=== PATIENT | female | born 1995 | race Two or more races ===

== ENCOUNTER 2024-05-17 15:08 | Outpatient (AMBR) | payer MEDICAID, SELFPAY ==
--- NOTE | 2024-05-17 16:30 | LACNOTE_ITS ---
Assessment LAC Breast Assessment Breast Assessment Bilateral: Breast Assessment Comment: large full breasts, mom has good milk supply Alternative Milk Expression Alternative Milk Expression Alternative Method Comment: issued mom a hand pump as she has a small electric but doesn't feel it is working LAC Assessment Breast Feeding Assessment Date of : 04/16/24 Current Age of baby: 1 (month) Weight: 3129.787 kg Current weight of baby: 3238.65 kg Color of Stools: yellow, explosive and somewhat mucous Breast Feeding Ability: Well [place] Complications: Difficult Latch [place] Activity Level: Awake / Alert Muscle Tone: With In Normal Limits Suck Quality: Areolar Compression and Tongue Retracts Effective Suck: Yes Swallow: Audible [place] Jaw: Receding Lip Seal: Excess Suction and Chomping Feeding Posistion: Cradle Additional Latch or Posistion Assistance Needed: Minimal Breast Feeding Comment: mom has good let down and baby struggling to keep up with flow, encouraged mom to pump prior to feeds to allow for slower flow of milk in order for baby to adjust LAC Latch Score LATCH Score Latch: Repeat Attempt to Hold Nipple Audible Swallow: Spontaneous, Intermittent, Frequent Nipple Type: Everted After Stimulation Comfort: Red, Small Blisters, Bruises Hold: Minimal Assistance Needed Total Score: 7 OP DC Assessment Discharge Visit Complete?: Yes
--- NOTE | 2024-05-17 16:54 | LAC.VISIT ---
Assessment LAC OP History History Hx of Breast Surgery: No Hx of Breast Feeding Problems: No LAC Breast Assessment Breast Assessment Left: Breast Assessment Comment: large full breast, mom has good milk supply Alternative Milk Expression Alternative Milk Expression Alternative Method Used: Yes Method Used: Pumping Alternative Method Comment: issued mom a hand pump as she has a small electric but doesn't feel it is working. Alternative Method Used Reason: Stimulation and Poor Feeding LAC Assessment Breast Feeding Assessment Date of : 04/16/24 Current Age of baby: 1 (month) Weight: 3129.787 g Current weight of baby: 3238.65 g Color of Stools: yellow, explosive and somewhat mucous Breast Feeding Ability: Well Complications: Difficult Latch Complications Comment: hard time staying latched and effectively transfering milk. baby struggles to suck swallow and detaches after only 4-5 minutes of a feed. sleeps for 10 -20 minutes and then wakes up to feed again for 5-6 minutes. repeated throughout the day. mom exhaused from feedling all day and baby struggling to breath through feeding. Activity Level: Rooting and Sleepy Muscle Tone: With In Normal Limits [place] Suck Quality: Areolar Compression and Tongue Retracts Effective [place] Suck: Yes [place] Swallow: Audible [place] Jaw: Receding [place] Lip Seal: Clicking, Excess Suction and Chomping Feeding Posistion: Cradle Additional Latch or Posistion Assistance Needed: Minimal Breast Feeding Comment: mom has good let down and baby struggling to keep up with flow, encouraged mom to pump prior to feeds to allow for slower flow of milk in order for baby to adjust LAC Intervention Discharge Follow Up Appointment Date and Time: as needed LAC Latch Score LATCH Score Latch: Repeat Attempt to Hold Nipple Audible Swallow: Spontaneous, Intermittent, Frequent Nipple Type: Everted After Stimulation Comfort: Red, Small Blisters, Bruises Hold: Minimal Assistance Needed Total Score: 7 OP DC Assessment Discharge Follow Up Appointment Date and Time: as needed
== END 2024-05-20 23:59 | disposition home or self-care (01) ==
LOC: HODLAC 15:08
DX: Z39.1 Encounter for care and examination of lactating mother (principal)

== ENCOUNTER 2024-08-30 15:33 | Emergency (ER) | payer MEDICAID, SELFPAY ==
[2024-08-30 15:33] VITALS: BMI 23.8
[2024-08-30 15:42] VITALS: BP 115/80; PULSE 102; RESP 20; TEMP 36.8; O2SAT 98
--- NOTE | 2024-08-30 16:02 | PD.EDURI ---
Upper Respiratory Inf. RME/HPI General Chief Complaint: Flu Like Symptoms Stated Complaint: COUGH/PARRISH/RUNNY NOSE/SORE THROAT x 2 DAYS Time Seen by Provider: 08/30/24 15:38 Arrival date/time: 08/30/24 15:33 29-year-old female with no significant medical problems presents emergency department today with complaints of cough, congestion, runny nose ongoing x 2 days patient is here with her infant who has tested positive for RSV there are no other associated symptoms or aggravating factors no other modifying factors, patient denies taking medication before coming to ER today Limitations: no limitations Related Data Home Medications ?Medication ?Instructions ?Recorded ?Confirmed vits no.130-ferrous fum 1 tab PO QDAY 04/16/24 04/16/24 27 mg iron-folic acid 800 mcg tablet ( Vitamin) Previous Rx's ?Medication ?Instructions ?Recorded docusate sodium 100 mg capsule 100 mg PO BID #60 caps 04/16/24 (Colace) ibuprofen 800 mg tablet 800 mg PO Q6H PRN pain #120 tabs 04/16/24 lanolin 50 % topical ointment 1 applic topical TID PRN skin 04/16/24 irritation #15 tubes benzonatate 100 mg capsule 100 mg PO TID #14 caps 08/30/24 prednisone 20 mg tablet 20 mg PO BID 3 days #6 tabs 08/30/24 Allergies Allergy/AdvReac Type Severity Reaction Status Date / Time pineapple Allergy Severe Rash Verified 08/30/24 15:35 Review of Systems Review of Systems Systems Reviewed: All systems reviewed, normal except as documented Constitutional Constitutional: Reports system reviewed and no additional complaints, except as documented, Reports body ache(s), Reports chills, Reports fever(s) and Reports headache(s) Eyes Eyes: Reports system reviewed and no additional complaints, except as documented and Denies blurry vision ENT Ears, Nose, Mouth, and Throat: Reports system reviewed and no additional complaints, except as documented, Reports headache(s), Reports nasal congestion and Reports nasal discharge Cardiovascular Cardiovascular: Reports system reviewed and no additional complaints, except as documented, Denies chest pain and Denies dyspnea Respiratory Respiratory: Reports system reviewed and no additional complaints, except as documented, Denies chest congestion, Denies cough and Denies dyspnea Gastrointestinal Gastrointestinal: Reports system reviewed and no additional complaints, except as documented and Denies abdominal pain Integumentary/Breasts Skin/Breast: Reports system reviewed and no additional complaints, except as documented and Denies rash Neurologic Neurologic: Reports system reviewed and no additional complaints, except as documented, Reports as per HPI and Reports headache(s) Past Medical History Past Medical History NEUROLOGIC: Negative Neurological Disorders CARDIAC: Negative Cardiac Disorders or Congestive Heart Failure RESPIRATORY: Negative Chronic Obstructive Pulmonary Disease (COPD) GASTROINTESTINAL: Positive Gall Bladder Disease; Negative Gastrointestinal Disorders GENITOURINARY: Negative Genitourinary Disorders or Renal Disease REPRODUCTIVE: Positive Previous Pregnancies; Negative Endometriosis, Pelvic Inflammatory Disease or Uterine Prolapse MUSCULOSKELETAL: Negative Musculoskeletal Disorders ENDOCRINE: Negative Endocrine Disorders, Diabetes Mellitus Type 1 or Diabetes Mellitus Type 2 HEMATOLOGIC: Positive Anemia; Negative Clotting Problems OTHER HISTORY: Negative Autoimmune Disease, Anesthesia Reactions, MRSA, Clostridium Difficile or Cancer Family History FAMILY HISTORY: Positive Family Cancer; Negative Family Psychiatric Problems, Family Respiratory Disorders, Family Cardiac Disorders, Family Gastrointestinal Problems, Family Surgery or Family Anesthesia Reaction Surgical History SURGICAL: Negative Section Social History SMOKING STATUS: Never smoker SECOND HAND EXPOSURE: No ED Exam General Limitations: Present no limitations General appearance: Present alert and in no apparent distress Head Head exam: Present atraumatic, normocephalic and normal inspection Eye Eye exam: Present normal appearance, PERRL and EOMI; Absent conjunctival injection ENT ENT exam: Present normal exam, normal oropharynx and mucous membranes moist Neck Neck exam: Present normal inspection, full ROM and trachea midline Chest Chest inspection: Present normal inspection and symmetric chest wall rise; Absent tenderness Respiratory Respiratory exam: Present normal lung sounds bilaterally; Absent respiratory distress Cardiovascular Cardiovascular exam: Present regular rate, normal rhythm and normal heart sounds Abdominal Exam Abdominal exam: Present soft and normal bowel sounds; Absent distention, tenderness, guarding, rebound or rigidity Extremities Exam Extremities exam: Present normal inspection and full ROM Back Exam Back exam: Present normal inspection and full ROM Neurological Exam Neurological exam: Present alert, oriented X3 and CN II-XII intact Psychiatric Psychiatric exam: Present normal affect and normal mood Skin Skin exam: Present warm, dry, intact and normal color Course Quality Measures none Vital Signs Vital signs: Vital Signs Temperature 98.3 F 08/30/24 15:42 Pulse Rate 102 H 08/30/24 15:42 Respiratory Rate 20 08/30/24 15:42 Blood Pressure 115/80 08/30/24 15:42 Pulse Oximetry (%) 98 08/30/24 15:42 Oxygen Delivery Method Room Air 08/30/24 15:42 O2 saturation 98% room air within normal limits Upper Respiratory Infection MDM Narrative MDM Narrative:: 29-year-old female with no significant medical problems presents emergency department today with complaints of cough, congestion, runny nose ongoing x 2 days patient is here with her who has tested positive for RSV there are no other associated symptoms or aggravating factors no other modifying factors, patient denies taking medication before coming to ER today On exam patient well-appearing patient's not appear ill or toxic patient will be treated symptomatically Patient hemodynamically stable Patient discharged home in no distress to follow-up with primary care doctor in the next 24 to 48 hours and for any worsening symptoms to return to the ER immediately Patient data External records reviewed:: [facility] previous records Clinical information provided by:: patient Social determinants that could affect healthcare access:: none Patient has the following chronic illnesses:: None How is presenting disease/condition affected by chronic disease/condition?: no chronic disease Evaluation data The following diagnostics were reviewed and interpreted by me:: lab results Lab and/or radiology exams considered but not ordered:: Labs obtained Interpretation Summary: Reviewed by me Medications / Prescriptions Medications or Prescriptions considered but not ordered:: Rx given Medication administrations:: Rx given Consultations Consultation(s) initiated? (list below): No Diagnosis Upper Respiratory Differential Diagnosis: upper respiratory infection, otitis media, sinusitis, viral infection, bronchitis and influenza Most likely diagnosis given after review of the tests above:: RSV Admission Indicated Admission indicated?: not indicated Admission Request Was there a request for admission?: No Disposition Plan Disposition Plan: Discharge Discharge Attestation Discharge Attestation: The patient and all family members were given an opportunity to ask questions and understood the discharge instructions. Discharge instructions specifically effects, indications for sooner follow up or return to the emergency department, and the expected course of current diagnosis. Patient condition: Stable Discharge Plan Plan Patient Disposition: HOME (Self Care) Disposition Comment: Stable Prescriptions/Referrals Prescriptions/Med Rec: New prednisone 20 mg tablet 20 mg PO BID 3 Days Qty: 6 0RF benzonatate 100 mg capsule 100 mg PO TID Qty: 14 0RF No Action Vitamin 27 mg iron- 800 mcg tablet 1 tab PO QDAY Patient Comments: TAKE ONE TABLET BY MOUTH EVERY DAY VITAMIN ibuprofen 800 mg tablet 800 mg PO Q6H MDD 4 PRN (Reason: pain) Qty: 120 0RF docusate sodium [Colace] 100 mg capsule 100 mg PO BID Qty: 60 0RF lanolin 50 % ointment 1 applic topical TID PRN (Reason: skin irritation) Qty: 15 0RF Problem List Clinical Impression: URI (upper respiratory infection), RSV exposure Patient/Caregiver Discharge Instructions Education Materials: ED URI, Viral, No Abx (Adult) Additional Instructions: Please follow up with your primary care doctor in the next 24-48hrs for any worsening symptoms return here immediately Print Language: Citizen Of [place] Stand Alone Forms: Megan Award Info., Patient Portal Info Letter PA/FAMILY SERVICES WORKER Supervising Physician PA/FAMILY SERVICES WORKER Supervising Physician: Dr. Coleman
== END 2024-08-30 16:13 | disposition home or self-care (01) ==
LOC: SERX 16:30
PROVIDERS: Emergency Provider Emergency Medicine
DX: J06.9 Acute upper respiratory infection, unspecified (principal)
CPT/HCPCS: 99281

== ENCOUNTER 2024-10-22 20:10 | Emergency (ER) | payer BC, MEDICAID, SELFPAY ==
[2024-10-22 20:13] VITALS: BMI 23.8
[2024-10-22 21:30] VITALS: BP 121/75; PULSE 71; RESP 18; TEMP 36.7; O2SAT 98
--- NOTE | 2024-10-22 21:42 | XR_ITS ---
Examination: Transvaginal ultrasound of the pelvis, complete Technique: Transvaginal sonographic images pelvis performed using bourne scale imaging Exam date and time: October 22, 2024, 11:44 PM INDICATIONS: Severe pelvic pain beginning 2 months ago FINDINGS: Uterus 5.7 cm with increased vascularity, endometrial stripe 0.2 cm Right ovary 3.4 cm arterial flow small follicles, dilated veins Left ovary 2.4 cm arterial flow small follicles IMPRESSION: Increased vascularity to the uterus, no uterine mass or intrauterine gestation
--- NOTE | 2024-10-22 21:42 | XR_ITS ---
Examination: CT abdomen with intravenous contrast CT pelvis with intravenous contrast 2-D coronal reconstructions 2-D sagittal reconstructions Date and time of exam:October 23, 2024 0141 hours INDICATIONS: Pelvic abdominal pain beginning 2 months ago. CTDI: vol (mGy) 4.86 DLP: (mGycm) 253 Technique: Multiple axial sections of the abdomen and pelvis have been obtained. 64 slice high-resolution scanner used. 3 mm axial sections have been obtained, post intravenous injection 60 cc [id number] 2-D sagittal, coronal reconstructions obtained. Low dose protocols were performed. One or more of the following dose reduction techniques were used; automated exposure control, adjustment of the mA and/or KV according to patient size, use of iterative reconstruction technique. Findings: No focal liver or splenic lesion Absent gallbladder No pancreatic mass No renal or ureteral calculi Aorta normal size No bowel obstruction Normal appendix Prominent vessels surrounding the uterus Mild urinary bladder wall thickening IMPRESSION: Prominent vessels surrounding the uterus, clinical correlation advised Cystitis pattern
[2024-10-22 22:10] LABS: Basophils # (Auto) 0.1 Thou/mm3 (0.0-0.2); Basophils % (Auto) 1 % (0-2.5); Eosinophils # (Auto) 0.2 Thou/mm3 (0.0-0.5); Eosinophils % (Auto) 3 % (0-10); Hematocrit 38.8 % (36.0-46.0); Hemoglobin 12.7 g/dL (12.0-16.0); Immature Granulocytes % (Auto) 0 % (0-0); Lymphocytes # (Auto) 2.7 Thou/mm3 (1.0-4.8); Lymphocytes % (Auto) 39 % (10-50); Mean Corpuscular HGB Conc 32.7 g/dl (31.0-37.0); Mean Corpuscular Volume 86 fL (80-100); Monocytes # (Auto) 0.5 Thou/mm3 (0.0-0.8); Monocytes % (Auto) 7 % (0-12); Neutrophils # (Auto) 3.5 Thou/mm3 (1.8-7.7); Neutrophils % (Auto) 51 % (37-80); Nucleated Red Blood Cell % 0 /100 WBC (0); Platelet Count 205 Thou/mm3 (140-440); RDW Standard Deviation 40.1 fL (36.4-46.3); Red Blood Count 4.53 Miln/mm3 (4.00-5.20); White Blood Count 6.8 Thou/mm3 (3.6-11.0)
[2024-10-22 22:44] LABS: Alanine Aminotransferase < 7 U/L (10-49); Albumin, Serum 4.7 gm/dL (3.5-5.0); Anion Gap 8 (7-16); Aspartate Amino Transferase 15 U/L (0-34); BUN/Creatinine Ratio 32 Ratio (12-20); Bilirubin,Total 0.4 mg/dL (0.3-1.2); Blood Urea Nitrogen 19 mg/dL (9-23); Calcium 9.4 mg/dL (8.3-10.6); Carbon Dioxide 27.1 mMol/L (20.0-31.0); Chloride 103 mMol/L (98-107); Creatinine (Component) 0.6 mg/dL (0.6-1.3); Estimated Creatinine Clearance 109.4 mL/min (>60); Glucose 96 mg/dL (74-106); Osmolality,Calculated 277 (275-295); Sodium 138 mMol/L (136-145); Total Protein 7.8 gm/dL (5.7-8.2); eGFR > 60 See Note
[2024-10-22 22:45] LABS: Albumin/Globulin Ratio 1.5 (1.2-2.2); Alkaline Phosphatase 189 U/L (46-116); Calcium (Corrected) 9.4 mg/dL (8.5-10.1); Globulin 3.1 gm/dL (2.3-3.5); Lipase 38 U/L (12-53)
[2024-10-22 23:02] LABS: Collection Type, Urine Clean Catch
[2024-10-22 23:32] LABS: Bilirubin,Urine Negative (Negative); Blood,Urine Trace (Negative); Clarity,Urine Clear (Clear/Hazy); Color,Urine Lt-Yellow (Lt Yel-Yel); Glucose, Urine Negative (Negative); Ketones,Urine Negative (Negative); Leukocyte Esterase,Urine Positive (Negative); Nitrite,Urine Negative (Negative); PH,Urine 6.5 (5.0-7.0); Protein,Urine Trace (Neg - Trace); RBC,Urine 10 /hpf (0-3); Specific Gravity,Urine 1.028 (1.001-1.035); Squamous Epithelial Cell,Urine 8 /hpf (0-5); Urobilinogen,Urine Negative mg/dL (0.0-1.0); WBC,Urine 80 /hpf (0-5)
[2024-10-22 23:33] LABS: HCG Qualitative,Urine Negative
[2024-10-23] MEDS: KETOROLAC INJ 30 MG/ML VIAL IVP (00:12)
--- NOTE | 2024-10-23 01:34 | PRELIM_ITS ---
Pelvic ultrasound (transvaginal) with Doppler. October 22, 2024 2344 hours Clinical history: Pain No prior study is available for comparison. Findings: The uterus is retroflexed and appear smaller in size measuring 5.7 x 2.8 x 3.4 cm. The myometrium appear hypervascular with multiple dilated parametrial veins. The endometrium is unremarkable and measures 0.2 cm. The right ovary measures 3.4 x 1.6 x 2.2 cm.The left ovary measures 2.4 x 1.9 x 1.9 cm. Both ovaries demonstrate color flow and spectral waveforms on Doppler evaluation. There is no adnexal mass. There is no free fluid on the submitted images. Impression: No evidence of ovarian torsion. 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 Adenomyosis is also in the differential. Recommend clinical correlation and followup with elective MRI. Report Electronically Signed By: Boubacar Link 10/23/2024 1:33:51 AM [EST]
--- NOTE | 2024-10-23 02:50 | PRELIM_ITS ---
CT scan of the abdomen and pelvis with intravenous contrast (axial sections with sagittal and coronal reformats) October 23, 2024 0141 hours Clinical History: Several months of pelvic pain No prior study is available for comparison. Findings: The lung bases are clear. The gallbladder is surgically absent. The liver, pancreas, spleen, kidneys and adrenals are unremarkable. No evidence of small bowel dilatation. The appendix is within normal limits. Moderate amount of fecal material is present in the colon. The urinary bladder is not well distended with apparent wall thickening .There are multiple small follicles in bilateral ovaries. There are prominent bilateral pelvic veins, which may represent pelvic congestion. There is no free fluid or free air.There is no adenopathy. The osseous structures are unremarkable. Impression: No evidence of bowel obstruction, free air or abscess. Prominent bilateral pelvic veins, which may represent pelvic congestion. Recommend further evaluation. Incompletely distended urinary bladder with apparent wall thickening, mild cystitis cannot be excluded. Recommend clinical and laboratory correlation. Report Electronically Signed By: Boubacar Link 10/23/2024 2:49:36 AM [EST]
[2024-10-23] MEDS: MORPHINE SULF INJ 10 MG/ML VIAL 5 MG IVP (04:08)
[2024-10-23 04:09] VITALS: BP 124/64; PULSE 89; RESP 19; TEMP 36.7; O2SAT 99
--- NOTE | 2024-10-23 04:27 | PD.EDFMALE ---
ED Female Urogenital RME/HPI General Chief complaint: Abdominal Pain Stated complaint: Abdominal pain 8/10 with off/on nausea LR Time Seen by Provider: 10/22/24 21:41 Arrival date/time: 10/22/24 20:10 29F with no significant PMH presents to ED with several months of intermittent but intense pelvic pain and N/V. Patient has had various unremarkable US, but no CT. Limitations: no limitations Related Data Home Medications ?Medication ?Instructions ?Recorded ?Confirmed vits no.130-ferrous fum 1 tab PO QDAY 04/16/24 04/16/24 27 mg iron-folic acid 800 mcg tablet ( Vitamin) Previous Rx's ?Medication ?Instructions ?Recorded docusate sodium 100 mg capsule 100 mg PO BID #60 caps 04/16/24 (Colace) ibuprofen 800 mg tablet 800 mg PO Q6H PRN pain #120 tabs 04/16/24 lanolin 50 % topical ointment 1 applic topical TID PRN skin 04/16/24 irritation #15 tubes benzonatate 100 mg capsule 100 mg PO TID #14 caps 08/30/24 Allergies Allergy/AdvReac Type Severity Reaction Status Date / Time pineapple Allergy Severe Rash Verified 08/30/24 15:35 Review of Systems Review of Systems Systems Reviewed: All systems reviewed, normal except as documented Constitutional Constitutional: Reports system reviewed and no additional complaints, except as documented, Denies fever(s) and Denies headache(s) ENT Ears, Nose, Mouth, and Throat: Denies disequilibrium and Denies headache(s) Cardiovascular Cardiovascular: Reports system reviewed and no additional complaints, except as documented, Denies chest pain and Denies dyspnea Respiratory Respiratory: Reports system reviewed and no additional complaints, except as documented, Denies cough and Denies dyspnea Gastrointestinal Gastrointestinal: Reports system reviewed and no additional complaints, except as documented, Denies abdominal pain, Denies nausea and Denies vomiting Genitourinary Genitourinary: Reports as per HPI and Reports pelvic pain Neurologic Neurologic: Reports system reviewed and no additional complaints, except as documented, Denies confusion, Denies disequilibrium and Denies headache(s) Psychiatric Psychiatric: Denies confusion Past Medical History Past Medical History NEUROLOGIC: Negative Neurological Disorders CARDIAC: Negative Cardiac Disorders or Congestive Heart Failure RESPIRATORY: Negative Chronic Obstructive Pulmonary Disease (COPD) or Asthma GASTROINTESTINAL: Positive Gall Bladder Disease; Negative Gastrointestinal Disorders GENITOURINARY: Negative Genitourinary Disorders or Renal Disease REPRODUCTIVE: Positive Previous Pregnancies; Negative Endometriosis, Pelvic Inflammatory Disease or Uterine Prolapse MUSCULOSKELETAL: Negative Musculoskeletal Disorders ENDOCRINE: Negative Endocrine Disorders, Diabetes Mellitus Type 1 or Diabetes Mellitus Type 2 HEMATOLOGIC: Positive Anemia; Negative Sickle Cell Disease or Clotting Problems OTHER HISTORY: Negative Autoimmune Disease, Anesthesia Reactions, MRSA, Clostridium Difficile or Cancer Family History FAMILY HISTORY: Positive Family Cancer; Negative Family Psychiatric Problems, Family Respiratory Disorders, Family Cardiac Disorders, Family Gastrointestinal Problems, Family Surgery or Family Anesthesia Reaction Surgical History SURGICAL: Negative Section Social History SMOKING STATUS: Never smoker SECOND HAND EXPOSURE: No ED Exam General Limitations: Present no limitations General appearance: Present alert and in no apparent distress Head Head exam: Present atraumatic Eye Eye exam: Present normal appearance, PERRL and EOMI ENT ENT exam: Present normal exam, normal oropharynx and mucous membranes moist Neck Neck exam: Present normal inspection, full ROM and trachea midline Chest Chest inspection: Present normal inspection and symmetric chest wall rise Respiratory Respiratory exam: Present normal lung sounds bilaterally Cardiovascular Cardiovascular exam: Present regular rate, normal rhythm and normal heart sounds Abdominal Exam Abdominal exam: Present soft and normal bowel sounds Extremities Exam Extremities exam: Present normal inspection and full ROM Back Exam Back exam: Present normal inspection and full ROM Neurological Exam Neurological exam: Present alert, oriented X3 and CN II-XII intact Psychiatric Psychiatric exam: Present normal affect and normal mood Skin Skin exam: Present warm, dry, intact and normal color Course Quality Measures none Orders Category Date Time Status CT Screening NOW Care 10/22/24 21:42 Completed Insert IV NOW Care 10/22/24 21:[address] abdomen pelvis w con Stat Exams 10/22/24 21:42 Taken US transvaginal Stat Exams 10/22/24 21:42 Taken CBC Stat Lab 10/22/24 21:56 Completed CMP [Comprehensive Metabolic Panel] Stat Lab 10/22/24 21:56 Completed HCG Qualitative,Urine Stat Lab 10/22/24 22:50 Completed Lipase Stat Lab 10/22/24 21:56 Completed UA [Urinalysis] Stat Lab 10/22/24 22:50 Completed Ketorolac Inj [Toradol Inj] Med 10/22/24 21:42 Discontinued 30 mg IVP X1 ONE Ketorolac Inj [Toradol Inj] Med 10/23/24 03:10 Discontinued 30 mg IVP X1 ONE Morphine Inj Med 10/23/24 03:14 Discontinued 5 mg IVP X1 ONE Vital Signs Vital signs: Vital Signs Temperature 98.1 F 10/22/24 21:30 Pulse Rate 71 10/22/24 21:30 Respiratory Rate 18 10/22/24 21:30 Blood Pressure 121/75 10/22/24 21:30 Pulse Oximetry (%) 98 10/22/24 21:30 Oxygen Delivery Method Room Air 10/22/24 21:30 O2 at 98% on RA and WNLs Urogenital - Female MDM Narrative MDM Narrative:: 29F with no significant PMH presents to ED with several months of intermittent but intense pelvic pain and N/V. Patient has had various unremarkable US, but no CT. Physical exam eveals no ab tenderness. Patient is afebrile, alert, but appears to be in pain. CT and US reveals possible pelvic congestion syndrome. Epic Analyst given. No leukocytosis. CMP unremarkable. HCG neg. UA contaminated but possible UTI, but will not treat as patient denies dysuria. Patient data External records reviewed:: [facility] previous records Clinical information provided by:: patient Social determinants that could affect healthcare access:: none Patient has the following chronic illnesses:: none How is presenting disease/condition affected by chronic disease/condition?: no chronic disease Evaluation data The following diagnostics were reviewed and interpreted by me:: lab results and radiology exam(s) Lab and/or radiology exams considered but not ordered:: ordered Interpretation Summary: above Medications / Prescriptions Medications or Prescriptions considered but not ordered:: ordered Medication administrations:: Medication Administration History Discontinued Medications Ketorolac Tromethamine (Ketorolac Inj 30 Mg/Ml Vial) 30 mg IVP X1 ONE Stop: 10/22/24 21:43 Last Admin: 10/23/24 00:12 Dose: 30 mg Documented By: HARITHA Ketorolac Tromethamine (Ketorolac Inj 30 Mg/Ml Vial) 30 mg IVP X1 ONE Stop: 10/23/24 03:11 Last Admin: 10/23/24 03:47 Dose: Not Given Documented By: HARITHA Non-Admin Reason: Discontinued Morphine Sulfate (Morphine Sulf Inj 10 Mg/Ml Vial) 5 mg IVP X1 ONE Stop: 10/23/24 03:15 Last Admin: 10/23/24 04:08 Dose: 5 mg Documented By: HARITHA above Consultations Consultation(s) initiated? (list below): No Diagnosis Urogenital Female Differential Diagnosis: urinary tract infection, bacterial vaginosis, trichomoniasis, cervicitis, ovarian cyst, vaginitis, ruptured ovarian cyst, cyst of Bartholin's gland, cystitis, dysmenorrhea and other (pelvic congestion syndrome) Most likely diagnosis given after review of the tests above:: pelvic congestion syndrome Admission Indicated Admission indicated?: not indicated Admission Request Was there a request for admission?: No Disposition Plan Disposition Plan: Discharge Discharge Attestation Discharge Attestation: The patient and all family members were given an opportunity to ask questions and understood the discharge instructions. Discharge instructions specifically effects, indications for sooner follow up or return to the emergency department, and the expected course of current diagnosis. Patient condition: Stable Discharge Plan Plan Patient Disposition: HOME (Self Care) Disposition Comment: Stable Prescriptions/Referrals Prescriptions/Med Rec: No Action Vitamin 27 mg iron- 800 mcg tablet 1 tab PO QDAY Patient Comments: TAKE ONE TABLET BY MOUTH EVERY DAY VITAMIN ibuprofen 800 mg tablet 800 mg PO Q6H MDD 4 PRN (Reason: pain) Qty: 120 0RF docusate sodium [Colace] 100 mg capsule 100 mg PO BID Qty: 60 0RF lanolin 50 % ointment 1 applic topical TID PRN (Reason: skin irritation) Qty: 15 0RF benzonatate 100 mg capsule 100 mg PO TID Qty: 14 0RF Referrals: No Primary/Family,Physician [Primary Care Provider] - In 1 week Problem List Clinical Impression: Pelvic congestion syndrome Patient/Caregiver Discharge Instructions Education Materials: Pelvic Congestion Syndrome Additional Instructions: Please follow-up with PCP /OBYGN within 24-48 hours and return immediately if symptoms worsen. May need MRI/MRA for official diagnosis. NSAIDs tend to work better for this type of pain. Print Language: Turkish Stand Alone Forms: Patient Portal Info Letter PA/LINEWORKER Supervising Physician PA/LINEWORKER Supervising Physician: Dr. Washington
== END 2024-10-23 04:12 | disposition home or self-care (01) ==
PROVIDERS: Physician Assistant; Emergency Provider Emergency Medicine
DX: N94.89 Other specified conditions associated with female genital organs and menstrual cycle (principal)
CPT/HCPCS: 36415; 74177; 76830; 80053; 81001; 81025; 83690; 85025; 96374; 99285; A4649; J1885; J2270; Q9967

== ENCOUNTER 2024-11-22 18:02 | Emergency (ER) | payer BC, SELFPAY ==
[2024-11-22 18:12] VITALS: BP 126/78; PULSE 75; RESP 17; TEMP 36.8; O2SAT 97
--- NOTE | 2024-11-22 18:22 | PD.EDRME ---
Rapid Medical Screening Exam RME Arrival date/time: 11/22/24 18:02 Chief Complaint: General Adult/Misc Complain Time Seen by Provider: 11/22/24 18:15 Vital signs: Vital Signs Temperature 98.3 F 11/22/24 18:12 Pulse Rate 75 11/22/24 18:12 Respiratory Rate 17 11/22/24 18:12 Blood Pressure 126/78 11/22/24 18:12 Pulse Oximetry (%) 97 11/22/24 18:12 Oxygen Delivery Method Room Air 11/22/24 18:12 Vital signs reviewed by provider: Yes RME Narrative: 29-year-old female presents the ED with complaint of pelvic pain has been ongoing for a year. She is already seen OB already seen in November sent her to a different OB doctor to get a biopsy they would not do it and she wants answers that
--- NOTE | 2024-11-22 18:26 | XR_ITS ---
Examination: Pelvic ultrasound, transabdominal, complete Technique: Transabdominal ultrasound of the pelvis performed using grayscale imaging Date and time of exam: 2024 hours INDICATIONS: Pelvic pain 1 year, worse the last 7 months FINDINGS: Uterus 7.1 cm endometrial stripe 0.2 cm no uterine mass or intrauterine gestation Right ovary 4.1 cm arterial flow Left ovary 3.8 cm arterial flow increased vascularity to the left adnexal region IMPRESSION: No uterine mass or intrauterine gestation Increased vascularity to the left adnexal region, consider pelvic inflammatory disease, clinical correlation advised
[2024-11-22 18:47] LABS: Collection Type, Urine Clean Catch
[2024-11-22 19:03] LABS: Bacteria,Urine Rare; Bilirubin,Urine Negative (Negative); Blood,Urine Negative (Negative); Clarity,Urine Clear (Clear/Hazy); Color,Urine Lt-Yellow (Lt Yel-Yel); Glucose, Urine Negative (Negative); Ketones,Urine Negative (Negative); Leukocyte Esterase,Urine Positive (Negative); Nitrite,Urine Negative (Negative); Protein,Urine Negative (Neg - Trace); RBC,Urine 3 /hpf (0-3); Specific Gravity,Urine 1.023 (1.001-1.035); Squamous Epithelial Cell,Urine 10 /hpf (0-5); Urobilinogen,Urine Negative mg/dL (0.0-1.0); WBC,Urine 9 /hpf (0-5)
[2024-11-22 19:04] LABS: HCG Qualitative,Urine Negative
[2024-11-22 19:11] LABS: Basophils % (Auto) 1 % (0-2.5); Eosinophils # (Auto) 0.2 Thou/mm3 (0.0-0.5); Eosinophils % (Auto) 3 % (0-10); Hematocrit 36.6 % (36.0-46.0); Hemoglobin 12.5 g/dL (12.0-16.0); Immature Granulocytes % (Auto) 0 % (0-0); Immature Granulocytes Auto 0.02 Thou/mm3 (0.00-0.00); Lymphocytes # (Auto) 2.5 Thou/mm3 (1.0-4.8); Lymphocytes % (Auto) 38 % (10-50); Mean Corpuscular HGB Conc 34.2 g/dl (31.0-37.0); Mean Corpuscular Hemoglobin 28.6 pg (25.0-35.0); Mean Corpuscular Volume 84 fL (80-100); Monocytes # (Auto) 0.5 Thou/mm3 (0.0-0.8); Monocytes % (Auto) 7 % (0-12); Neutrophils # (Auto) 3.4 Thou/mm3 (1.8-7.7); Neutrophils % (Auto) 52 % (37-80); Nucleated Red Blood Cell % 0 /100 WBC (0); Platelet Count 252 Thou/mm3 (140-440); RDW Standard Deviation 39.9 fL (36.4-46.3); Red Blood Count 4.37 Miln/mm3 (4.00-5.20); White Blood Count 6.5 Thou/mm3 (3.6-11.0)
[2024-11-22 19:40] VITALS: BP 118/80; PULSE 68; RESP 17; TEMP 36.8; O2SAT 99
[2024-11-22 20:31] LABS: Alanine Aminotransferase 15 U/L (10-49); Albumin, Serum 4.9 gm/dL (3.5-5.0); Albumin/Globulin Ratio 1.8 (1.2-2.2); Alkaline Phosphatase 196 U/L (46-116); Anion Gap 7 (7-16); Aspartate Amino Transferase 17 U/L (0-34); BUN/Creatinine Ratio 17 Ratio (12-20); Bilirubin,Total 0.4 mg/dL (0.3-1.2); Blood Urea Nitrogen 10 mg/dL (9-23); Calcium 9.2 mg/dL (8.3-10.6); Calcium (Corrected) 9.2 mg/dL (8.5-10.1); Carbon Dioxide 27.8 mMol/L (20.0-31.0); Chloride 103 mMol/L (98-107); Creatinine (Component) 0.6 mg/dL (0.6-1.3); Globulin 2.8 gm/dL (2.3-3.5); Glucose 93 mg/dL (74-106); Lipase 38 U/L (12-53); Osmolality,Calculated 274 (275-295); Potassium 3.5 mMol/L (3.4-5.1); Sodium 138 mMol/L (136-145); Total Protein 7.7 gm/dL (5.7-8.2); eGFR > 60 See Note
[2024-11-22 21:22] LABS: Amylase 72 U/L (30-118)
--- NOTE | 2024-11-22 21:30 | EDNOTE_ITS ---
ED Abdominal Pain RME/HPI General Chief Complaint: General Adult/Misc Complain Stated complaint: PELVIC PAIN 03/30 Time seen by provider: 11/22/24 18:15 Arrival date/time: 11/22/24 18:02 RME / HPI RME / HPI narrative: 29-year-old female presents the ED with complaint of pelvic pain has been ongoing for a year. She is already seen OB already seen in November sent her to a different OB doctor to get a biopsy they would not do it and she wants answers that Dr. Washington?s Main ED Evaluation: 29 y/o female presents to ED c/o constant lower abdominal pain x several months. Patient describes her pain as sharp and burning in nature. Patient has been diagnosed with Pelvic Congestive syndrome in an ED, but her DISABILITY PROGRAM NAVIGATOR disagrees with the diagnosis. DISABILITY PROGRAM NAVIGATOR felt the patient instead had endometriosis and was referred to another OB for a biopsy, but the patient refused. Patient currently states her pain is severe in nature. Patient denies any N/V/D, fever, chills, dysuria, back pain or any other associated symptoms. Related Data Home Medications ?Medication ?Instructions ?Recorded ?Confirmed vits no.130-ferrous fum 1 tab PO QDAY 4 04/16/24 27 mg iron-folic acid 800 mcg tablet ( Vitamin) Previous Rx's ?Medication ?Instructions ?Recorded docusate sodium 100 mg capsule 100 mg PO BID #60 caps 04/16/24 (Colace) ibuprofen 800 mg tablet 800 mg PO Q6H PRN pain #120 tabs 04/16/24 lanolin 50 % topical ointment 1 applic topical TID PRN skin 04/16/24 irritation #15 tubes benzonatate 100 mg capsule 100 mg PO TID #14 caps 08/21 oxycodone 5 mg capsule 5 mg PO TID PRN pain #10 cap s 11/22/24 Allergies Allergy/AdvReac Type Severity Reaction Status Date / Time pineapple Allergy Severe Rash Verified 11/22/24 18:07 Review of Systems Review of Systems Systems Reviewed: All systems reviewed, normal except as documented Past Medical History Past Medical History GASTROINTESTINAL: Positive Gall Bladder Disease REPRODUCTIVE: Positive Previous Pregnancies HEMATOLOGIC: Positive Anemia Family History FAMILY HISTORY: Positive Family Cancer ED Exam Narrative Physical exam: GENERAL APPEARANCE: alert and oriented x 4, well-developed, well-nourished, no acute distress VITALS: All vitals were reviewed and the pulse ox is 99% on room air, which is normal according to my interpretation. HEENT: Normocephalic, atraumatic; pupils equal, round, reactive to light; EOMI; mucous membranes pink, moist; oropharynx clear NECK: Supple LUNGS: CTABL; no wheezes, no rales, no rhonchi HEART: Regular rate, regular rhythm; normal S1, S2; no murmurs ABDOMEN: non distended; normal BS; soft, no tenderness, no guarding, no rebound; no masses, no organomegaly, no hernia BACK: no CVA tenderness EXTREMITIES: atraumatic; no edema NEUROLOGIC: awake; alert and oriented x4; cranial nerves II-XII grossly intact; no focal sensory or motor deficits PSYCHIATRIC: appropriate mood and affect SKIN: warm, dry, normal color; no rashes Course Quality Measures none Orders Category Date Time Status US pelvic complete Stat Exams 11/22/24 18:26 Completed Amylase Stat Lab 11/22/24 18:40 Completed CBC Stat Lab 11/22/24 18:40 Completed Comprehensive Metabolic Panel Stat Lab 11/22/24 18:40 Completed HCG Qualitative,Urine Stat Lab 11/22/24 18:35 Completed Lipase Stat Lab 11/22/24 18:40 Completed Urinalysis Stat Lab 11/22/24 18:35 Completed oxyCODONE/APAP 5/325 [Percocet 5/325] Med 11/22/24 21:37 Discontinued 1 tab PO X1 ONE Vital Signs Vital signs: Vital Signs Temperature 98.3 F 11/22/24 18:12 Pulse Rate 75 11/22/24 18:12 Respiratory Rate 17 11/22/24 18:12 Blood Pressure 126/78 11/22/24 18:12 Pulse Oximetry (%) 97 11/22/24 18:12 Oxygen Delivery Method Room Air 11/22/24 18:12 Abdominal Pain MDM MDM Narrative MDM Narrative:: Scribe Attestation: Kelly, Susy Pringle, am scribing for and in the presence of Dr. Washington. Provider Notation: Although this document has been carefully reviewed, there may still be some phonetic and other typographical errors.? These errors are purely grammatical due to imperfections in the software program and should not be construed in any way to? compromise the substance of the patient's medical care during this visit. Patient data External records reviewed:: [facility] previous records (Prior ED records reviewed from 10/23/24. Patient was seen for Pelvic congestion syndrome.) Clinical information provided by:: patient Social determinants that could affect healthcare access:: none Patient has the following chronic illnesses:: Gall bladder disease, anemia How is presenting disease/condition affected by chronic disease/condition?: uneffected by Evaluation data The following diagnostics were reviewed and interpreted by me:: lab results and radiology exam(s) Lab and/or radiology exams considered but not ordered:: None Interpretation Summary: LABS CBC and UA unremarkable, per my interpretation. RADIOLOGY Pelvic US: Patient: LACIE TORRES. Record#: [id number] Birthdate: 1995 Age/Sex: 29 / F Location: [facility] Attending Dr: Ordering Physician: Yane Humphreys PA-C Date of Service: 11/22/24 Procedure(s): US pelvic complete Accession Number(s): [id number] cc: Elton Diaz MD; NO PRIMARY/FAMILY,PHYSICIAN; Yane Humphreys PA-C~ Examination: Pelvic ultrasound, transabdominal, complete Technique: Transabdominal ultrasound of the pelvis performed using grayscale imaging Date and time of exam: 2024 202 hours INDICATIONS: Pelvic pain 1 year, worse the last 7 months FINDINGS: Uterus 7.1 cm endometrial stripe 0.2 cm no uterine mass or intrauterine gestation Right ovary 4.1 cm arterial flow Left ovary 3.8 cm arterial flow increased vascularity to the left adnexal region IMPRESSION: No uterine mass or intrauterine gestation Increased vascularity to the left adnexal region, consider pelvic inflammatory disease, clinical correlation advised Dictated By: Elton Diaz MD Signed By: <Electronically signed by Elton Diaz MD in OV> 11/22/24 2112 Medications / Prescriptions Medications or Prescriptions considered but not ordered:: None Medication administrations:: Medication Administration History Discontinued Medications Oxycodone/Acetaminophen (Oxycodone/Apap 5/325 Tablet) 1 tab PO X1 ONE Stop: 11/22/24 21:38 Last Admin: 11/22/24 21:53 Dose: 1 tab Documented By: KF See above if any. Consultations Consultation(s) initiated? (list below): No Diagnosis Differential diagnosis abdominal pain: abdominal pain, acute appendicitis, calculus of kidney, constipation, endometriosis, small bowel obstruction and other (Ovarian cyst) Most likely diagnosis given after review of the tests above:: See clinical impression below. Admission Indicated Admission indicated?: not indicated Explain why admission is indicated or not indicated:: Patient has no emergent abnormalities in their studies and can be managed on an outpatient basis. Admission Request Was there a request for admission?: No Disposition Plan Disposition Plan: Discharge Discharge Attestation Discharge Attestation: The patient and all family members were given an opportunity to ask questions and understood the discharge instructions. Discharge instructions specifically effects, indications for sooner follow up or return to the emergency department, and the expected course of current diagnosis. Patient condition: Stable Discharge Plan Plan Patient Disposition: HOME (Self Care) Discharge Disposition comment: Stable for discharge home Patient condition on transfer: Stable Prescriptions/Referrals Prescriptions/Med Rec: New oxycodone 5 mg capsule 5 mg PO TID MDD 3 caps PRN (Reason: pain) Qty: 10 0RF No Action Vitamin 27 mg iron- 800 mcg tablet 1 tab PO QDAY Patient Comments: TAKE ONE TABLET BY MOUTH EVERY DAY VITAMIN ibuprofen 800 mg tablet 800 mg PO Q6H MDD 4 PRN (Reason: pain) Qty: 120 0RF docusate sodium [Colace] 100 mg capsule 100 mg PO BID Qty: 60 0RF lanolin 50 % ointment 1 applic topical TID PRN (Reason: skin irritation) Qty: 15 0RF benzonatate 100 mg capsule 100 mg PO TID Qty: 14 0RF Referrals: [facility] [Provider Group] - In 1 week Problem List Clinical Impression: Female pelvic congestion syndrome Patient/Caregiver Discharge Instructions Discharge Activity: activity as tolerated Education Materials: Pelvic Congestion Syndrome Additional Instructions: Please return to the emergency department for any worsening or any further medical problems and we will help you. Otherwise you should follow-up with your primary care doctor and your primary OB within the next several days. I have written a prescription for 5 mg oxycodone which is waiting for you at your pharmacy. Please do not take more than 3 tabs in a 24-hour period. As long as you are taking this low-dose oxycodone there should not be any effect on your breast-feeding infants. Print Language: Azerbaijani Stand Alone Forms: Megan Award Info., Patient Portal Info Letter
[2024-11-22] MEDS: oxyCODONE/APAP 5/325 TABLET 1 TAB PO (21:53)
== END 2024-11-22 21:57 | disposition home or self-care (01) ==
PROVIDERS: Physician Assistant; Emergency Provider Emergency Medicine
DX: N94.89 Other specified conditions associated with female genital organs and menstrual cycle (principal)
CPT/HCPCS: 36415; 76856; 80053; 81001; 81025; 82150; 83690; 85025; 99284; A9270

== ENCOUNTER 2025-02-12 12:26 | Emergency (ER) | payer BC, SELFPAY ==
[2025-02-12 12:27] VITALS: BMI 19.2
[2025-02-12 12:43] VITALS: BP 118/73; PULSE 88; RESP 16; TEMP 37.1; O2SAT 95
--- NOTE | 2025-02-12 12:45 | XR_ITS ---
Examination: Left hand 2 views Technique: AP lateral left hand 2 views Date and time: February 12, 2025 at 1249 hrs. Indications: Patient fell yesterday with injury to the hand, hand pain. Findings: Mild osteopenia. No acute fracture No dislocation Impression: No acute fracture
--- NOTE | 2025-02-12 12:45 | XR_ITS ---
Examination: AP chest single view Technique: AP portable upright chest single view Date and time: February 12, 2025, 12:55 PM Indications: Patient fell yesterday with injury to the chest, bilateral shoulder pain Findings: Normal heart size. No pneumothorax. Clavicles, bones of the shoulders, RIBS appear intact Impression: No pneumothorax pulmonary contusion or hemothorax
--- NOTE | 2025-02-12 12:46 | PD.EDFALL ---
ED Fall Injury RME/HPI General Chief Complaint: Fall Stated Complaint: FALL YESTERDAY,LEFT WRIST/RIGHT SHOULDER PAIN Time Seen by Provider: 02/12/25 12:32 Arrival date/time: 02/12/25 12:26 RME / HPI RME / HPI Narrative: 29-year-old female patient came in for evaluation regarding left hand pain. Incident happened yesterday afternoon, patient fell from a steers about 6 steps, landing on her back, now complaining of left hand pain, and bilateral scapular pain, described as dull ache severity mild. Patient denies any LOC denies any injury to the head denies any neck pain denies any pelvic pain. Patient is ambulatory. No nausea no vomiting no headache. No medication was taken prior to arrival. Related Data Home Medications ?Medication ?Instructions ?Recorded ?Confirmed vits no.130-ferrous fum 1 tab PO QDAY 04/16/24 04/16/24 27 mg iron-folic acid 800 mcg tablet ( Vitamin) Previous Rx's ?Medication ?Instructions ?Recorded docusate sodium 100 mg capsule 100 mg PO BID #60 caps 04/16/24 (Colace) ibuprofen 800 mg tablet 800 mg PO Q6H PRN pain #120 tabs 04/16/24 lanolin 50 % topical ointment 1 applic topical TID PRN skin 04/16/24 irritation #15 tubes benzonatate 100 mg capsule 100 mg PO TID #14 caps 08/30/24 oxycodone 5 mg capsule 5 mg PO TID PRN pain #10 caps 11/22/24 ibuprofen 600 mg tablet 600 mg PO Q8H PRN pain #30 tabs 02/12/25 Allergies Allergy/AdvReac Type Severity Reaction Status Date / Time pineapple Allergy Severe Rash Verified 02/12/25 12:29 Review of Systems Review of Systems Narrative Review of Systems: Review of system reviewed and within normal limits except mentioned in HPI ED Exam Narrative Physical exam: VITAL SIGNS: Reviewed. GENERAL APPEARANCE: Alert and interactive, follows commands, no acute distress, HEAD AND FACE: Non-traumatic. ENT: PERRL, pink conjunctivitis, eyelid no trauma, Mucous membrane moist. NECK: Supple, nontender, no nuchal rigidity. CHEST:+ Upper back tenderness, bilateral scapular tenderness, no crepitus no swelling no deformity no bruising, no crepitus, no paradoxical movement, no retractions. LUNGS: Clear, well ventilated, symmetric, no rales, no wheezing, no ronchi, no stridor, good breath sounds bilaterally. HEART: Regular rate, regular rhythm, no murmur, no gallops. ABDOMEN: Soft, positive bowel sounds, nondistended, no guarding, nontender, no rebound, no masses, RECTAL: Deferred. GENITAL: Deferred. NEUROLOGICAL: Gross motor function intact sensory function intact, Appropriate for age. MUSCULOSKELETAL: low back nontender, full range of motion. EXTREMITIES: Left hand tenderness, no deformity no crepitus, full range of motion. Distal neurovascular status intact SKIN: Color pink, dry, no rash, no lacerations, no abrasions, no contusions. LYMPHATICS: Deferred. Course Quality Measures none Orders Category Date Time Status XR chest 2V Stat Exams 02/12/25 12:45 Completed XR hand LT 2V Stat Exams 02/12/25 12:45 Completed Acetaminophen Tab [Tylenol ES Tab] Med 02/12/25 12:45 Discontinued 500 mg PO X1 ONE Vital Signs Vital signs: Vital Signs Temperature 98.7 F 02/12/25 12:43 Pulse Rate 88 02/12/25 12:43 Respiratory Rate 16 02/12/25 12:43 Blood Pressure 118/73 02/12/25 12:43 Pulse Oximetry (%) 95 02/12/25 12:43 Oxygen Delivery Method Room Air 02/12/25 12:43 Fall MDM Narrative MDM Narrative:: 29-year-old female patient came in for evaluation regarding left hand pain. Incident happened yesterday afternoon, patient fell from a steers about 6 steps, landing on her back, now complaining of left hand pain, and bilateral scapular pain, described as dull ache severity mild. Patient denies any LOC denies any injury to the head denies any neck pain denies any pelvic pain. Patient is ambulatory. No nausea no vomiting no headache. No medication was taken prior to arrival. X-ray of the hand came back unremarkable. X-ray of the chest came back unremarkable. Results discussed with the patient. Patient was placed on the volar splint per patient's request. Patient appears nontoxic and hemodynamically stable .Decision to discharge the patient. The patient/family was given an opportunity to ask questions and understood their discharge instructions. Discharge instructions specifically included follow up provider and time frame, current and/or new medications and possible side effects, indications for sooner follow up or return to the emergency department, and the expected course of current diagnosis. Patient reports feeling better as well and giving evidence of significant clinical improvement, I believe patient is now a candidate for discharge. Patient data External records reviewed:: None Clinical information provided by:: patient Social determinants that could affect healthcare access:: none Patient has the following chronic illnesses:: None How is presenting disease/condition affected by chronic disease/condition?: no chronic disease Evaluation data The following diagnostics were reviewed and interpreted by me:: radiology exam(s) Lab and/or radiology exams considered but not ordered:: None Interpretation Summary: See results MDM Medications / Prescriptions Medications or Prescriptions considered but not ordered:: none Medication administrations:: Medication Administration History Discontinued Medications Acetaminophen (Acetaminophen 500 Mg Tablet) 500 mg PO X1 ONE Stop: 02/12/25 12:46 Last Admin: 02/12/25 13:11 Dose: 500 mg Documented By: Tylenol Consultations Consultation(s) initiated? (list below): No Diagnosis Fall Differential Diagnosis: other (Hand sprain, hand pain, scapular pain, status post fall) Most likely diagnosis given after review of the tests above:: Hand pain, scapular pain, status post fall Admission Indicated Admission indicated?: not indicated Admission Request Was there a request for admission?: No Disposition Plan Disposition Plan: Discharge Discharge Attestation Discharge Attestation: The patient was given an opportunity to ask questions and understood the discharge instructions. Discharge instructions specifically effects, indications for sooner follow up or return to the emergency department, and the expected course of current diagnosis. Patient condition: Stable Discharge Plan Plan Patient Disposition: HOME (Self Care) Discharge Disposition comment: Stable Prescriptions/Referrals Prescriptions/Med Rec: New ibuprofen 600 mg tablet 600 mg PO Q8H PRN (Reason: pain) Qty: 30 0RF No Action oxycodone 5 mg capsule 5 mg PO TID MDD 3 caps PRN (Reason: pain) Qty: 10 0RF Vitamin 27 mg iron- 800 mcg tablet 1 tab PO QDAY Patient Comments: TAKE ONE TABLET BY MOUTH EVERY DAY VITAMIN ibuprofen 800 mg tablet 800 mg PO Q6H MDD 4 PRN (Reason: pain) Qty: 120 0RF docusate sodium [Colace] 100 mg capsule 100 mg PO BID Qty: 60 0RF lanolin 50 % ointment 1 applic topical TID PRN (Reason: skin irritation) Qty: 15 0RF benzonatate 100 mg capsule 100 mg PO TID Qty: 14 0RF Referrals: Elie Sargent MD [Primary Care Provider] - In 1 week Problem List Clinical Impression: Hand pain, Pain in scapula Patient/Caregiver Discharge Instructions Discharge Activity: activity as tolerated Education Materials: Measuring Your Pain Additional Instructions: Thank you for the opportunity for serving you today. You are stable for discharged . You are advised to: Follow-up with your PCP in 1 to 2 days Return to ED for worsening of symptoms Increase oral fluids Take medication as prescribed You can use your hand splint as needed Print Language: Gambian Stand Alone Forms: Megan Award Info., Patient Portal Info Letter AMANDA/FRANKY Supervising Physician AMANDA/FRANKY Supervising Physician: MD Ariela
[2025-02-12] MEDS: ACETAMINOPHEN 500 MG TABLET PO (13:11)
--- NOTE | 2025-02-12 15:36 | PC.NURSE ---
nax 1 at this time
--- NOTE | 2025-02-12 15:37 | PC.NURSE ---
nax1 at this time
== END 2025-02-12 16:17 | disposition home or self-care (01) ==
PROVIDERS: Emergency Provider Emergency Medicine; PCP Family Medicine
DX: M25.511 Pain in right shoulder (principal); M79.642 Pain in left hand; S29.9XXA Unspecified injury of thorax, initial encounter; W10.9XXA Fall (on) (from) unspecified stairs and steps, initial encounter
CPT/HCPCS: 71046; 73120; 99283; A9270

== ENCOUNTER 2025-04-11 23:03 | Emergency (ER) | payer BC, SELFPAY ==
[2025-04-11 23:03] VITALS: BP 108/71; PULSE 100; RESP 18; TEMP 36.7; O2SAT 99
[2025-04-11 23:04] VITALS: BMI 19.0
--- NOTE | 2025-04-11 23:18 | XR_ITS ---
Examination: CT abdomen with intravenous contrast CT pelvis with intravenous contrast 2-D coronal reconstructions 2-D sagittal reconstructions Date and time of exam:04 12, 2024, 0156 hrs.. Indications: Lower abdominal pain beginning several months ago CTDI: vol (mGy) 4.74 DLP: (mGycm) 233 Technique: Multiple axial sections of the abdomen and pelvis have been obtained. 64 slice high-resolution scanner used. 3 mm axial sections have been obtained, post intravenous injection 60 cc [id number] 2-D sagittal, coronal reconstructions obtained. Low dose protocols were performed. One or more of the following dose reduction techniques were used; automated exposure control, adjustment of the mA and/or KV according to patient size, use of iterative reconstruction technique. Findings: No focal liver or splenic lesion Absent gallbladder No extrahepatic biliary tract dilatation No pancreatic mass No renal or ureteral calculi, no hydronephrosis Aorta normal size I do not visualize a definite colitis pattern There is minimal small bowel ileus Vessels are prominent in the adnexal regions lateral to the uterus No pericecal inflammatory change Urinary bladder wall is mildly thickened Osseous structures intact Impression: Mild small bowel ileus Prominent veins lateral to the uterus Suspicious for mild cystitis
--- NOTE | 2025-04-11 23:18 | PD.EDRME ---
Rapid Medical Screening Exam RME Arrival date/time: 04/11/25 23:03 Chief Complaint: Abdominal Pain Vital signs: Vital Signs Temperature 98.1 F 04/11/25 23:03 Pulse Rate 100 04/11/25 23:03 Respiratory Rate 18 04/11/25 23:03 Blood Pressure 108/71 04/11/25 23:03 Pulse Oximetry (%) 99 04/11/25 23:03 Oxygen Delivery Method Room Air 04/11/25 23:03 E Narrative: Generalized lower abdominal pain started today. No nausea/vomiting or dysuria. 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
[2025-04-11] MEDS: IBUPROFEN TAB 600 MG TABLET PO (23:31)
[2025-04-11 23:39] LABS: Basophils # (Auto) 0.0 Thou/mm3 (0.0-0.2); Basophils % (Auto) 0 % (0-2.5); Eosinophils # (Auto) 0.1 Thou/mm3 (0.0-0.5); Eosinophils % (Auto) 1 % (0-10); Hematocrit 40.2 % (36.0-46.0); Hemoglobin 12.9 g/dL (12.0-16.0); Immature Granulocytes Auto 0.01 Thou/mm3 (0.00-0.00); Lymphocytes # (Auto) 1.0 Thou/mm3 (1.0-4.8); Lymphocytes % (Auto) 18 % (10-50); Mean Corpuscular HGB Conc 32.1 g/dl (31.0-37.0); Mean Corpuscular Hemoglobin 27.8 pg (25.0-35.0); Mean Corpuscular Volume 87 fL (80-100); Monocytes # (Auto) 0.3 Thou/mm3 (0.0-0.8); Monocytes % (Auto) 6 % (0-12); Neutrophils # (Auto) 4.1 Thou/mm3 (1.8-7.7); Neutrophils % (Auto) 74 % (37-80); Nucleated Red Blood Cell # 0.00 Thou/mm3 (0.00-0.00); Nucleated Red Blood Cell % 0 /100 WBC (0); Platelet Count 182 Thou/mm3 (140-440); RDW Standard Deviation 42.3 fL (36.4-46.3); Red Blood Count 4.64 Miln/mm3 (4.00-5.20); White Blood Count 5.6 Thou/mm3 (3.6-11.0)
[2025-04-11 23:45] LABS: Collection Type, Urine Clean Catch
[2025-04-11 23:55] LABS: Bacteria,Urine Rare; Bilirubin,Urine Negative (Negative); Blood,Urine 1+ (Negative); Clarity,Urine Clear (Clear/Hazy); Color,Urine Yellow (Lt Yel-Yel); Glucose, Urine Negative (Negative); Ketones,Urine Negative (Negative); Leukocyte Esterase,Urine Positive (Negative); Nitrite,Urine Negative (Negative); PH,Urine 6.0 (5.0-7.0); Protein,Urine Trace (Neg - Trace); RBC,Urine 10 /hpf (0-3); Specific Gravity,Urine 1.034 (1.001-1.035); Squamous Epithelial Cell,Urine 13 /hpf (0-5); Urobilinogen,Urine Negative mg/dL (0.0-1.0); WBC,Urine 9 /hpf (0-5)
[2025-04-11 23:58] LABS: HCG Qualitative,Urine Negative
[2025-04-12 00:08] LABS: Alanine Aminotransferase < 7 U/L (10-49); Albumin, Serum 4.7 gm/dL (3.5-5.0); Albumin/Globulin Ratio 1.7 (1.2-2.2); Alkaline Phosphatase 155 U/L (46-116); Amylase 64 U/L (30-118); Anion Gap 9 (7-16); Aspartate Amino Transferase 14 U/L (0-34); BUN/Creatinine Ratio 15 Ratio (12-20); Bilirubin,Total 0.5 mg/dL (0.3-1.2); Blood Urea Nitrogen 9 mg/dL (9-23); Calcium 9.7 mg/dL (8.3-10.6); Calcium (Corrected) 9.7 mg/dL (8.5-10.1); Carbon Dioxide 27.7 mMol/L (20.0-31.0); Chloride 103 mMol/L (98-107); Creatinine (Component) 0.6 mg/dL (0.6-1.3); Estimated Creatinine Clearance 103.0 mL/min (>60); Globulin 2.7 gm/dL (2.3-3.5); Glucose 109 mg/dL (74-106); Osmolality,Calculated 279 (275-295); Potassium 4.0 mMol/L (3.4-5.1); Sodium 140 mMol/L (136-145); Total Protein 7.4 gm/dL (5.7-8.2); eGFR > 60 See Note
--- NOTE | 2025-04-12 01:41 | PD.EDABDPN ---
ED Abdominal Pain RME/HPI General Chief Complaint: Abdominal Pain Stated complaint: ABD PAIN Time seen by provider: 04/11/25 23:21 Arrival date/time: 04/11/25 23:03 RME / HPI RME / HPI narrative: Generalized lower abdominal pain started today. No nausea/vomiting or dysuria. 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 DR. COTTON MAIN ED EVALUATION: 29 y/o female with Hx of uterine cysts presents to ED c/o BL pelvic pain x 1 day. She reports having this pain in the past, but was only treated with Ibuprofen to manage symptoms. Patient is currently . LMP was towards the beginning of the month. Related Data Home Medications ?Medication ?Instructions ?Recorded ?Confirmed vits no.130-ferrous fum 1 tab PO QDAY 04/16/24 04/16/24 27 mg iron-folic acid 800 mcg tablet ( Vitamin) Previous Rx's ?Medication ?Instructions ?Recorded docusate sodium 100 mg capsule 100 mg PO BID #60 caps 04/16/24 (Colace) ibuprofen 800 mg tablet 800 mg PO Q6H PRN pain #120 tabs 04/16/24 lanolin 50 % topical ointment 1 applic topical TID PRN skin 04/16/24 irritation #15 tubes benzonatate 100 mg capsule 100 mg PO TID #14 caps 08/30/24 oxycodone 5 mg capsule 5 mg PO TID PRN pain #10 caps 11/22/24 ibuprofen 600 mg tablet 600 mg PO Q8H PRN pain #30 tabs 02/12/25 ibuprofen 600 mg tablet 600 mg PO Q6H PRN pain #30 tabs 04/12/25 ondansetron 4 mg disintegrating 4 mg PO Q6H PRN nausea and 04/12/25 tablet vomiting #20 tabs Allergies Allergy/AdvReac Type Severity Reaction Status Date / Time pineapple Allergy Severe Rash Verified 04/11/25 23:03 Review of Systems Review of Systems Systems Reviewed: All systems reviewed, normal except as documented Past Medical History Past Medical History GASTROINTESTINAL: Positive Gall Bladder Disease REPRODUCTIVE: Positive Previous Pregnancies HEMATOLOGIC: Positive Anemia Family History FAMILY HISTORY: Positive Family Cancer ED Exam Narrative Physical exam: Generally patient is alert in mild distress secondary to pain, heart regular rate and rhythm, lungs clear to auscultation equal bilaterally, abdomen soft bowel sounds present nondistended bilateral lower quadrant versus adnexal pain without rebound. Mild suprapubic abdominal pain. Extremities show capillary refill less than 2 seconds without edema, neurologic exam Davon Coma Scale is 15 without focal motor deficits Course Quality Measures none Orders Category Date Time Status CT Screening NOW Care 04/11/25 23:[address] abdomen pelvis w con Stat Exams 04/11/25 23:18 Taken Amylase Stat Lab 04/11/25 23:26 Completed CBC Stat Lab 04/11/25 23:26 Completed CMP [Comprehensive Metabolic Panel] Stat Lab 04/11/25 23:26 Completed HCG Qualitative,Urine Stat Lab 04/11/25 23:34 Completed UA [Urinalysis] Stat Lab 04/11/25 23:34 Completed Ibuprofen Tab [Motrin Tab] Med 04/11/25 23:17 Discontinued 600 mg PO X1 ONE Morphine* Inj Med 04/12/25 01:42 Discontinued 4 mg IVP X1 ONE Morphine* Inj Med 04/12/25 02:55 Once 4 mg IVP X1 ONE Ondansetron Inj [Zofran Inj] Med 04/12/25 02:58 Once 4 mg IVP X1 ONE Vital Signs Vital signs: Vital Signs Temperature 98.1 F 04/11/25 23:03 Pulse Rate 100 04/11/25 23:03 Respiratory Rate 18 04/11/25 23:03 Blood Pressure 108/71 04/11/25 23:03 Pulse Oximetry (%) 99 04/11/25 23:03 Oxygen Delivery Method Room Air 04/11/25 23:03 Abdominal Pain MDM MDM Narrative MDM Narrative:: Scribe Attestation: I, Susy Pringle, am scribing for and in the presence of Dr. Cotton. Provider Notation: Although this document has been carefully reviewed, there may still be some phonetic and other typographical errors. These errors are purely grammatical due to imperfections in the software program and should not be construed in any way to compromise the substance of the patient's medical care during this visit. Patient is currently breast-feeding. Patient received ibuprofen prior to my evaluation. I gave her morphine 4 mg IV and Zofran 4 mg IV with little benefit. Urine is not infected. is negative. There is no leukocytosis. No fever. CT scan done the abdomen pelvis without contrast showed evidence for enterocolitis with mild ileus and prominent adnexal veins bilaterally. The radiologist raised the possibility of cystitis however the urine is not infected. Patient will be given a prescription for ibuprofen and Zofran to be taken as prescribed. Keep well-hydrated. Follow-up with her doctor. Return to ER as needed or if condition worsens. I interpreted all labs. Patient data External records reviewed:: [facility] previous records (Reviewed prior ED records from 02/12/25. Patient was seen for Hand pain.) Clinical information provided by:: patient Social determinants that could affect healthcare access:: none Patient has the following chronic illnesses:: Gall Bladder Disease, Anemia How is presenting disease/condition affected by chronic disease/condition?: uneffected by Evaluation data The following diagnostics were reviewed and interpreted by me:: lab results and radiology exam(s) Lab and/or radiology exams considered but not ordered:: None Interpretation Summary: RADIOLOGY Abdomen/Pelvis CT: Findings: The lung bases are clear. There are small hypodense lesions in bilateral kidneys, too small to characterize. The gallbladder is surgically absent. The liver, pancreas, spleen and adrenals are unremarkable. Small bowel loops are thickened and fluid filled in the left upper quadrant and lower abdomen. Fluid filled right colon. No evidence of bowel obstruction. The appendix is within normal limits. The urinary bladder is not well distended with apparent wall thickening. There is fluid in the endometrial cavity, which may be related to the phase of the menstrual cycle. Both ovaries demonstrates follicles with a dominant follicle/ cyst in the right ovary measuring 1.7 cm. Trace free fluid is seen in the pelvis. There is no free air. There is no adenopathy. Prominent veins in the adnexa bilaterally. The osseous structures are unremarkable. Impression: Findings suggestive of enterocolitis with mild ileus. Prominent veins in the adnexa bilaterally, pelvic congestion syndrome cannot be excluded. Possible cystitis. Recommend clinical and laboratory correlation. Other findings as described above. Medications / Prescriptions Medications or Prescriptions considered but not ordered:: None Medication administrations:: Medication Administration History Morphine Sulfate (Morphine Sulf Inj 4 Mg/Ml Vial) 4 mg IVP X1 ONE Stop: 04/12/25 02:56 Ondansetron HCl (Ondansetron Inj 2 Mg/Ml Inj 2 Ml) 4 mg IVP X1 ONE; Protocol Stop: 04/12/25 02:59 Discontinued Medications Ibuprofen (Ibuprofen Tab 600 Mg Tablet) 600 mg PO X1 ONE Stop: 04/11/25 23:18 Last Admin: 04/11/25 23:31 Dose: 600 mg Documented By: MARCELO Morphine Sulfate (Morphine Sulf Inj 4 Mg/Ml Vial) 4 mg IVP X1 ONE Stop: 04/12/25 01:43 Last Admin: 04/12/25 02:18 Dose: 4 mg Documented By: WO See above if any Consultations Consultation(s) initiated? (list below): No Diagnosis Differential diagnosis abdominal pain: abdominal pain, acute appendicitis, calculus of kidney, diverticulitis, endometriosis, gastroenteritis, small bowel obstruction and other (PID, UTI, Ovarian torsion, Ruptured ovarian cyst) Most likely diagnosis given after review of the tests above:: none Admission Indicated Admission indicated?: not indicated Explain why admission is indicated or not indicated:: Patient does not meet admission criteria Admission Request Was there a request for admission?: No Disposition Plan Disposition Plan: Discharge Discharge Attestation Discharge Attestation: The patient and all family members were given an opportunity to ask questions and understood the discharge instructions. Discharge instructions specifically effects, indications for sooner follow up or return to the emergency department, and the expected course of current diagnosis. Patient condition: Stable Discharge Plan Plan Patient Disposition: HOME (Self Care) Prescriptions/Referrals Prescriptions/Med Rec: New ibuprofen 600 mg tablet 600 mg PO Q6H PRN (Reason: pain) Qty: 30 0RF ondansetron 4 mg tablet,disintegrating 4 mg PO Q6H PRN (Reason: nausea and vomiting) Qty: 20 0RF No Action oxycodone 5 mg capsule 5 mg PO TID MDD 3 caps PRN (Reason: pain) Qty: 10 0RF Vitamin 27 mg iron- 800 mcg tablet 1 tab PO QDAY Patient Comments: TAKE ONE TABLET BY MOUTH EVERY DAY VITAMIN ibuprofen 800 mg tablet 800 mg PO Q6H MDD 4 PRN (Reason: pain) Qty: 120 0RF docusate sodium [Colace] 100 mg capsule 100 mg PO BID Qty: 60 0RF lanolin 50 % ointment 1 applic topical TID PRN (Reason: skin irritation) Qty: 15 0RF benzonatate 100 mg capsule 100 mg PO TID Qty: 14 0RF ibuprofen 600 mg tablet 600 mg PO Q8H PRN (Reason: pain) Qty: 30 0RF Referrals: Elie Sargent MD [Primary Care Provider, Family Practice] - In 1 week Problem List Clinical Impression: Enterocolitis Patient/Caregiver Discharge Instructions Education Materials: ED Gastroenteritis, Noninfectious Additional Instructions: Keep well-hydrated. Ibuprofen and Zofran as prescribed. Follow-up with your primary care physician for further treatment and evaluation. Return to ER as needed or if condition worsens. Print Language: Icelandic Stand Alone Forms: Megan Award Info., Patient Portal Info Letter
[2025-04-12 01:42] VITALS: BP 115/66; PULSE 101; RESP 20; TEMP 37.1; O2SAT 99
[2025-04-12] MEDS: MORPHINE SULF INJ 4 MG/ML VIAL IVP (02:18)
--- NOTE | 2025-04-12 03:01 | PRELIM_ITS ---
CT scan of the abdomen and pelvis with intravenous contrast (axial sections with sagittal and coronal reformats) April 12, 2025 0156 hours Clinical History: lower abdominal pain today No prior study is available for comparison. Findings: The lung bases are clear. There are small hypodense lesions in bilateral kidneys, too small to characterize. The gallbladder is surgically absent. The liver, pancreas, spleen and adrenals are unremarkable. Small bowel loops are thickened and fluid filled in the left upper quadrant and lower abdomen. Fluid filled right colon. No evidence of bowel obstruction. The appendix is within normal limits. The urinary bladder is not well distended with apparent wall thickening. There is fluid in the endometrial cavity, which may be related to the phase of the menstrual cycle. Both ovaries demonstrates follicles with a dominant follicle/ cyst in the right ovary measuring 1.7 cm. Trace free fluid is seen in the pelvis. There is no free air. There is no adenopathy. Prominent veins in the adnexa bilaterally. The osseous structures are unremarkable. Impression: Findings suggestive of enterocolitis with mild ileus. Prominent veins in the adnexa bilaterally, pelvic congestion syndrome cannot be excluded. Possible cystitis. Recommend clinical and laboratory correlation. Other findings as described above. Report Electronically Signed By: Boubacar Link 04/12/2025 3:00:17 AM [EST]
[2025-04-12] MEDS: ONDANSETRON INJ 2 MG/ML INJ 2 ML 4 MG IVP (03:25)
[2025-04-12 03:40] VITALS: BP 120/72; PULSE 86; RESP 18; TEMP 36.6; O2SAT 96
== END 2025-04-12 03:42 | disposition home or self-care (01) ==
PROVIDERS: Physician Assistant; Emergency Provider Emergency Medicine; PCP Family Medicine
DX: K52.9 Noninfective gastroenteritis and colitis, unspecified (principal)
CPT/HCPCS: 36415; 74177; 80053; 81001; 81025; 82150; 85025; 96374; 96375; 99284; A4649; J2270; J2405; Q9967; A9270

== ENCOUNTER 2025-06-05 16:28 | Emergency (ER) | payer BC, MEDICAID, SELFPAY ==
[2025-06-05 16:50] VITALS: BP 128/81; PULSE 73; RESP 16; TEMP 36.8; O2SAT 99; BMI 19.2
--- NOTE | 2025-06-05 18:36 | XR_ITS ---
Examination: CT brain head without contrast. 2-D sagittal coronal reconstructions Date and time of exam: June 05, 2025, 1902 hours INDICATIONS: Headache blurred vision dizziness beginning 2 weeks ago CTDI: vol (mGy): 46.5 DLP: (mGycm): 892 Technique: Multiple CT axial sections of the brain have been obtained, 5 mm slice thickness. Contrast has not been administered. 2-D sagittal, coronal reconstructions have been obtained Low dose protocols were performed. One or more of the following dose reduction techniques were used; automated exposure control, adjustment of the mA and/or KV according to patient size, use of iterative reconstruction technique. Findings: No significant ventricular enlargement. Intra-axial or extra-axial hemorrhage density is not seen. No mass effect or midline shift Basal cisterns are not remarkable. Fourth ventricle is midline. Cranial vault intact. Impression: Negative for acute hemorrhage, mass effect or midline shift If symptoms persist, consider brain MRI MRA without contrast follow-up
--- NOTE | 2025-06-05 18:36 | EKG_ITS ---
[facility] Test Date: 2025-06-05 Pat Name: LACIE TORRES Department: Room: - Gender: [facility]: : 1995 Requested By: Severiano Garcia Order Number: [id number] Reading MD: Severiano Garcia Measurements Intervals [place] Rate: 68 P: 72 NH: 147 QRS: 85 QRSD: 78 T: 68 QT: 359 QTc: 383 Interpretive Statements SINUS RHYTHM Compared to ECG 03/28/2024 23:31:25 No significant changes /store/S0/[id number].pdf
[2025-06-05 19:07] LABS: Basophils # (Auto) 0.0 Thou/mm3 (0.0-0.2); Basophils % (Auto) 0 % (0-2.5); Eosinophils # (Auto) 0.1 Thou/mm3 (0.0-0.5); Eosinophils % (Auto) 2 % (0-10); Hematocrit 35.2 % (36.0-46.0); Hemoglobin 11.4 g/dL (12.0-16.0); Immature Granulocytes Auto 0.02 Thou/mm3 (0.00-0.00); Lymphocytes # (Auto) 2.1 Thou/mm3 (1.0-4.8); Lymphocytes % (Auto) 31 % (10-50); Mean Corpuscular HGB Conc 32.4 g/dl (31.0-37.0); Mean Corpuscular Hemoglobin 28.1 pg (25.0-35.0); Mean Corpuscular Volume 87 fL (80-100); Monocytes # (Auto) 0.4 Thou/mm3 (0.0-0.8); Monocytes % (Auto) 6 % (0-12); Neutrophils # (Auto) 4.1 Thou/mm3 (1.8-7.7); Neutrophils % (Auto) 61 % (37-80); Nucleated Red Blood Cell # 0.00 Thou/mm3 (0.00-0.00); Nucleated Red Blood Cell % 0 /100 WBC (0); Platelet Count 243 Thou/mm3 (140-440); RDW Standard Deviation 43.2 fL (36.4-46.3); Red Blood Count 4.06 Miln/mm3 (4.00-5.20); White Blood Count 6.8 Thou/mm3 (3.6-11.0)
[2025-06-05 19:26] LABS: B-Type Natriuretic Peptide 31 pg/mL (0-100)
[2025-06-05 19:48] LABS: Collection Type, Urine Clean Catch
[2025-06-05 19:53] LABS: Alanine Aminotransferase 14 U/L (10-49); Albumin, Serum 4.5 gm/dL (3.5-5.0); Albumin/Globulin Ratio 1.8 (1.2-2.2); Alkaline Phosphatase 131 U/L (46-116); Anion Gap 8 (7-16); Aspartate Amino Transferase < 8 U/L (0-34); BUN/Creatinine Ratio 15 Ratio (12-20); Bilirubin,Total 0.3 mg/dL (0.3-1.2); Blood Urea Nitrogen 9 mg/dL (9-23); Calcium 9.7 mg/dL (8.3-10.6); Calcium (Corrected) 9.7 mg/dL (8.5-10.1); Carbon Dioxide 28.7 mMol/L (20.0-31.0); Chloride 106 mMol/L (98-107); Creatinine (Component) 0.6 mg/dL (0.6-1.3); Estimated Creatinine Clearance 107.5 mL/min (>60); Globulin 2.5 gm/dL (2.3-3.5); Glucose 94 mg/dL (74-106); Lipase 35 U/L (12-53); Osmolality,Calculated 283 (275-295); Potassium 3.9 mMol/L (3.4-5.1); Sodium 143 mMol/L (136-145); Total Protein 7.0 gm/dL (5.7-8.2); Troponin I < 0.020 ng/mL (0.0-0.045); eGFR > 60 See Note
--- NOTE | 2025-06-05 19:54 | PD.EDRME ---
Rapid Medical Screening Exam RME Arrival date/time: 06/05/25 16:28 This is a case of 29-year-old female with no medical history came in in the emergency room due to chest pain and headache with abdominal pain worsening of the symptoms this patient decided to sought consult here in the emergency room Chief Complaint: General Adult/Misc Complain Time Seen by Provider: 06/05/25 18:30 Vital signs: Vital Signs Temperature 98.3 F 06/05/25 16:50 Pulse Rate 73 06/05/25 16:50 Respiratory Rate 16 06/05/25 16:50 Blood Pressure 128/81 06/05/25 16:50 Pulse Oximetry (%) 99 06/05/25 16:50 Oxygen Delivery Method Room Air 06/05/25 16:50 Exam: Lung sounds clear heart normal rate or rhythm no murmur abdominal exam benign nonsurgical no guarding no rebound no rigidity no tenderness neurological exam is normal Clinical Impression: Chest pain headache abdominal pain
[2025-06-05 20:08] VITALS: BP 138/78; PULSE 73; RESP 21; O2SAT 99
--- NOTE | 2025-06-05 20:09 | EDNOTE_ITS ---
ED General RME/HPI General Chief complaint: General Adult/Misc Complain Stated complaint: C/P H/A AND BLURRY VISION X2 DAYS Time Seen by Provider: 06/05/25 18:30 Arrival date/time: 06/05/25 16:28 RME / HPI RME / HPI narrative: 06/05/25 16:28 This is a case of 29-year-old female with no medical history came in in the emergency room due to chest pain and headache with abdominal pain worsening of the symptoms this patient decided to sought consult here in the emergency room Dr. [facility] Main ED Evaluation: 29yo female presents to the ED for multiple complaints. Patient reports having chest tightness for the last 2 days that migrates throughout her chest. Patient also notes having an intermittent headache with bilateral blurry vision over the last 2 weeks, reporting she does not have a history of migraines. Patient denies any dizziness, lightheadedness, cough, shortness of breath or any other associated symptoms. Related Data Home Medications ?Medication ?Instructions ?Recorded ?Confirmed vits no.130-ferrous fum 1 tab PO QDAY 4 04/16/24 27 mg iron-folic acid 800 mcg tablet ( Vitamin) Previous Rx's ?Medication ?Instructions ?Recorded docusate sodium 100 mg capsule 100 mg PO BID #60 caps 04/16/24 (Colace) ibuprofen 800 mg tablet 800 mg PO Q6H PRN pain #120 tabs 04/16/24 lanolin 50 % topical ointment 1 applic topical TID PRN skin 04/16/24 irritation #15 tubes benzonatate 100 mg capsule 100 mg PO TID #14 caps 08/21 oxycodone 5 mg capsule 5 mg PO TID PRN pain #10 cap s 11/22/24 ibuprofen 600 mg tablet 600 mg PO Q8H PRN pain #30 t abs 02/12/25 ibuprofen 600 mg tablet 600 mg PO Q6H PRN pain #30 t abs 04/12/25 ondansetron 4 mg disintegrating 4 mg PO Q6H PRN nausea and 04/12/25 tablet vomiting #20 tabs Allergies Allergy/AdvReac Type Severity Reaction Status Date / Time pineapple Allergy Severe Rash Verified 06/05/25 16:31 Review of Systems Review of Systems Systems Reviewed: All systems reviewed, normal except as documented Past Medical History Past Medical History NEUROLOGIC: Negative Neurological Disorders CARDIAC: Negative Cardiac Disorders or Congestive Heart Failure RESPIRATORY: Negative Chronic Obstructive Pulmonary Disease (COPD) or Asthma GASTROINTESTINAL: Positive Gall Bladder Disease; Negative Gastrointestinal Disorders GENITOURINARY: Negative Genitourinary Disorders or Renal Disease REPRODUCTIVE: Positive Previous Pregnancies; Negative Endometriosis, Pelvic Inflammatory Disease or Uterine Prolapse MUSCULOSKELETAL: Negative Musculoskeletal Disorders ENDOCRINE: Negative Endocrine Disorders, Diabetes Mellitus Type 1 or Diabetes Mellitus Type 2 HEMATOLOGIC: Positive Anemia; Negative Sickle Cell Disease or Clotting Problems OTHER HISTORY: Negative Autoimmune Disease, Anesthesia Reactions, MRSA, Clostridium Difficile or Cancer Family History FAMILY HISTORY: Positive Family Cancer; Negative Family Psychiatric Problems, Family Respiratory Disorders, Family Cardiac Disorders, Family Gastrointestinal Problems, Family Surgery or Family Anesthesia Reaction Surgical History SURGICAL: Negative Section Social History SMOKING STATUS: Never smoker SECOND HAND EXPOSURE: No ED Exam Narrative Physical exam: Generally patient is alert and in no obvious distress, eyes pupils equal round reactive to light extraocular movements are intact conjunctiva is clear and funduscopic exam is unremarkable. Neck shows no bruits, heart regular rate and rhythm, chest shows no wounds and nontender to palpation, lungs clear to auscultation equal bilaterally, abdomen soft bowel sounds present nondistended nontender, skin is warm pale and dry without rash, neurologic exam no facial asymmetry. No focal motor deficits. No ataxia. Course Quality Measures none Orders Category Date Time Status EKG (ED ONLY) *Do not use* NOW Care 06/05/25 18:[address] head/brain wo con Stat Exams 06/05/25 18:36 Completed EKG (ED Only) Stat Exams 06/05/25 18:36 Draft BNP [B-Type Natriuretic Peptide] Stat Lab 06/05/25 18:46 Completed CBC Stat Lab 06/05/25 18:46 Completed Comprehensive Metabolic Panel Stat Lab 06/05/25 18:46 Completed HCG Qualitative,Urine Stat Lab 06/05/25 19:42 Completed Lipase Stat Lab 06/05/25 18:46 Completed Troponin I Stat Lab 06/05/25 18:46 Completed Urinalysis Stat Lab 06/05/25 19:42 Completed Vital Signs Vital signs: Vital Signs Temperature 98.3 F 06/05/25 16:50 Pulse Rate 73 06/05/25 16:50 Respiratory Rate 16 06/05/25 16:50 Blood Pressure 128/81 06/05/25 16:50 Pulse Oximetry (%) 99 06/05/25 16:50 Oxygen Delivery Method Room Air 06/05/25 16:50 Discharge Plan Plan Patient Disposition: HOME (Self Care) Prescriptions/Referrals Prescriptions/Med Rec: No Action oxycodone 5 mg capsule 5 mg PO TID MDD 3 caps PRN (Reason: pain) Qty: 10 0RF Vitamin 27 mg iron- 800 mcg tablet 1 tab PO QDAY Patient Comments: TAKE ONE TABLET BY MOUTH EVERY DAY VITAMIN ibuprofen 800 mg tablet 800 mg PO Q6H MDD 4 PRN (Reason: pain) Qty: 120 0RF docusate sodium [Colace] 100 mg capsule 100 mg PO BID Qty: 60 0RF lanolin 50 % ointment 1 applic topical TID PRN (Reason: skin irritation) Qty: 15 0RF benzonatate 100 mg capsule 100 mg PO TID Qty: 14 0RF ibuprofen 600 mg tablet 600 mg PO Q8H PRN (Reason: pain) Qty: 30 0RF ibuprofen 600 mg tablet 600 mg PO Q6H PRN (Reason: pain) Qty: 30 0RF ondansetron 4 mg tablet,disintegrating 4 mg PO Q6H PRN (Reason: nausea and vomiting) Qty: 20 0RF Referrals: Elie Sargent MD [Primary Care Provider, Family Practice] - In 1 week Problem List Clinical Impression: Cephalalgia, Diplopia, Chest pain Patient/Caregiver Discharge Instructions Additional Instructions: Your workup tonight was unremarkable. Follow-up with your doctor for neurology referral if symptoms persist. Print Language: [place] Stand Alone Forms: Megan Award Info., Patient Portal Info Letter MDM Narrative [facility] hospital course (for use when minimal MDM required): Scribe Attestation: 06/05/25 - Susana Mendoza am scribing for and in the presence of Dr. Bhatai. Patient describes the chest pain as being left upper chest pain. EKG shows normal sinus rhythm at a rate of 68 without ischemic change or ectopy. Troponin is normal. Head CT is negative. Blood work is unremarkable. I do not believe this to be ischemic chest pain. I do not believe this patient to have a dissecting carotid or vertebral artery. Patient seems to give the history of when she gets headaches she has bilateral blurred vision. I think the blurred vision bilaterally to be due to the headache itself. She does have primary care follow-up. She is to follow-up with primary care for possible neurology referral. I interpreted all labs. There was no significant abnormality. Patient will be discharged in stable condition. Clinical Information Provided by: patient Medical Records reviewed [facility] (Per chart review, patient was seen here on 04/12/25 for enterocolitis.) Meds/Rx considered, not ordered None Labs/Rad/Tests considered, not ordered None Chronic Illness/Social Conditions which may negatively complicate care or outcome(s)-explain: None or not applicable Labs Labs: interpreted by me Imaging Imaging interpretation: interpreted by me Imaging Interpretation(s): [place] [facility] Report Signed Patient: LACIE TORRES [facility]. Record#: [id number] Birthdate: 1995 Age/Sex: 29 / F Location: [facility] Attending Dr: Ordering Physician: Severiano Benítez Date of Service: 06/05/25 Procedure(s): CT head/brain wo [facility] Accession Number(s): [id number] cc: Elie Sargent MD; Elton Diaz MD; Severiano Benítez~ Examination: CT brain head without contrast. 2-D sagittal coronal reconstructions Date and time of exam: June 05, 2025, 1902 hours INDICATIONS: Headache blurred vision dizziness beginning 2 weeks ago CTDI: vol (mGy): 46.5 DLP: (mGycm): 892 Technique: Multiple CT axial sections of the brain have been obtained, 5 mm slice thickness. Contrast has not been administered. 2-D sagittal, coronal reconstructions have been obtained Low dose protocols were performed. One or more of the following dose reduction techniques were used; automated exposure control, adjustment of the mA and/or KV according to patient size, use of iterative reconstruction technique. Findings: No significant ventricular enlargement. Intra-axial or extra-axial hemorrhage density is not seen. No mass effect or midline shift Basal cisterns are not remarkable. Fourth ventricle is midline. Cranial vault intact. Impression: Negative for acute hemorrhage, mass effect or midline shift If symptoms persist, consider brain MRI MRA without contrast follow-up Dictated By: Elton Diaz MD Signed By: <Electronically signed by Elton Diaz MD in [place]> 06/05/25 1912 Medication Administration(s) none Diagnosis Differential Diagnosis ED Complaint MDM: See MDM
[2025-06-05 20:16] LABS: Bilirubin,Urine Negative (Negative); Blood,Urine 3+ (Negative); Color,Urine Brown (Lt Yel-Yel); Glucose, Urine Negative (Negative); Ketones,Urine Negative (Negative); Leukocyte Esterase,Urine Positive (Negative); Nitrite,Urine Negative (Negative); PH,Urine 6.0 (5.0-7.0); Protein,Urine 1+ (Neg - Trace); RBC,Urine 6456 /hpf (0-3); Specific Gravity,Urine 1.025 (1.001-1.035); Squamous Epithelial Cell,Urine 2 /hpf (0-5); Urobilinogen,Urine Negative mg/dL (0.0-1.0); WBC,Urine 4 /hpf (0-5)
[2025-06-05 20:17] LABS: Clarity,Urine Turbid (Clear/Hazy)
[2025-06-05 20:18] LABS: HCG Qualitative,Urine Negative
[2025-06-05 20:31] VITALS: BP 138/78; PULSE 75; RESP 22; O2SAT 98
== END 2025-06-05 20:32 | disposition home or self-care (01) ==
PROVIDERS: Nurse Practitioner Family; Emergency Provider Emergency Medicine; PCP Family Medicine
DX: R07.89 Other chest pain (principal); R51.9 Headache, unspecified; H53.2 Diplopia; R42 Dizziness and giddiness
CPT/HCPCS: 36415; 70450; 80053; 81001; 81025; 83690; 83880; 84484; 85025; 93005; 99283